=== PATIENT | male | born 1985 | race Asian ===

== ENCOUNTER 2023-04-17 08:01 | Outpatient (AMB) | payer OTHER, SELFPAY ==
--- NOTE | 2023-04-17 08:02 | A.OFFVIS_ITS ---
Intake Intake Visit Reasons: HEEL PAIN OK PER DR LOPEZ HPI HEEL PAIN OK PER DR LOPEZ HPI Details 37-year-old male presenting today on tele health visit for heel pain. Patient reports he will pain in the left heel for 2 months with weight-bearing. It is worst in the evening after a full day of walking when it is rated about 7/10. Pain improves after overnight rest. He has not tried physical therapy oral medications so far. He has not had any imaging of the heel. He denies any trauma to the heel. [facility] Medical History (Updated 04/17/23 @ 08:25 by Julio Lopez MD) GERD (gastroesophageal reflux disease) Review of Systems Const All systems reviewed & are unremarkable except as noted in HPI and below Results Reviewed Results Reviewed: No imaging is available for review. Assessment & Plan Assessment & Plan (1) Pain of left heel: Code(s): M79.672 - Pain in left foot Plan Will check uric acid level to rule out gout as possible cause of foot pain. X-ray of the left heel to rule out bony spurs or any other obvious abnormality. Refer for physical therapy including stretching and deep tissue massage. Orders: Orders Uric Acid Today M79.672 - Pain in left foot Complete Blood Count Auto Diff Today M79.672 - Pain in left foot PT Evaluation and Treatment Today M79.672 - Pain in left foot Telehealth Telehealth Location of provider rendering services: practice address Location of patient: address on file Patient Identification confirmed using: Name, : Yes Telehealth method: voice only Patient verbally consented to treatment: Yes Patient verbally consented to billing insurance company: Yes Patient informed of any privacy concerns related to visit: Yes Minutes spent on Phone/Video with Pt.: 10 Coding Level of Care Code Tele New Pt Level 3 (01215) Diagnoses Pain of left heel M79.672
== END 2023-04-17 08:02 | disposition home or self-care (01) ==
LOC: HO.PMC 08:02
PROVIDERS: Visit Provider Internal Medicine
DX: M79.672 Pain in left foot (principal)
CPT/HCPCS: 99441

== ENCOUNTER → 2023-04-17 08:01 | Outpatient (BNVA) | payer SELFPAY | PROVIDERS: Visit Provider Internal Medicine ==